=== PATIENT | male | born 1995 | race Caucasian/White ===

== ENCOUNTER 2016-10-20 02:01 | Emergency (ER) | payer OTHER ==
[~2016-10-20] VITALS: Ht 177.8 cm; Wt 136.1 kg
[2016-10-20 02:02] VITALS: BP 158/120
--- NOTE | 2016-10-20 02:31 | NUR ---
PATIENT TO OF1
[2016-10-20] MEDS ORDERED: LIDOCAINE 1% 500 MG/50 ML VIAL INJ ONE (02:35)
--- NOTE | 2016-10-20 02:45 | NUR ---
PATIENT MOVED TO ER BED 7
--- NOTE | 2016-10-20 02:50 | NUR ---
received from overflow
--- NOTE | 2016-10-20 03:00 | NUR ---
PATIENT PRESENTS TO ED WITH RT TOE NAIL INFECTED . PT DENIES N/V/D; SKIN IS PINK/WARM/DRY; AAOX4 WITH EVEN AND STEADY GAIT; LUNGS CLEAR BL; HR EVEN AND REGULAR; PT DENIES ANY FEVER, CP, SOB, OR COUGH AT THIS TIME; PATIENT STATES PAIN OF 10/10 AT THIS TIME; VSS; PATIENT POSITIONED FOR COMFORT; HOB ELEVATED; BEDRAILS UP X2; BED DOWN. ER MD MADE AWARE OF PT STATUS.
--- NOTE | 2016-10-20 03:30 | NUR ---
DR STONER USED STERILE PROCEDURE AND REMOVED PARTIAL RT TOE NAIL. PT TOLERATED WELL.
--- NOTE | 2016-10-20 04:10 | NUR ---
Patient discharged with v/s stable. Written and verbal after care instructions given and explained. Patient alert, oriented and verbalized understanding of instructions. Ambulatory with steady gait. All questions addressed prior to discharge. ID band removed. Patient advised to follow up with PMD. Rx of Bacitracin and Naprosyn given. Patient educated on indication of medication including possible reaction and side effects. Opportunity to ask questions provided and answered.
[2016-10-20 04:11] VITALS: BP 141/89
== END 2016-10-20 04:11 | disposition home or self-care (01) ==
LOC: MED 02:01
DX: L60.0 Ingrowing nail (principal); J45.909 Unspecified asthma, uncomplicated
CPT/HCPCS: 11765; 99285

== ENCOUNTER 2016-11-18 00:56 | Emergency (ER) | payer OTHER ==
[~2016-11-18] VITALS: Ht 175.3 cm; Wt 131.5 kg
[2016-11-18 01:05] VITALS: BP 161/120
--- NOTE | 2016-11-18 01:12 | NUR ---
TO ER BED 4
--- NOTE | 2016-11-18 01:21 | NUR ---
21Y/M PT. PRESENTS TO ED WITH C/O LT.INGROWN TOE NAIL X 1 MON. AAO X4, AMBULATORY WITH STEADY GAIT. SKIN WARM AND DRY. LT. INGROWN TOE NAIL, SWELLING. VS, BP ELEVATED. ER MADE AWARE OF PT. STATUS.
[2016-11-18] MEDS ORDERED: LIDOCAINE 1% 500 MG/50 ML VIAL INJ ONE (01:30)
--- NOTE | 2016-11-18 02:00 | NUR ---
DR. ARGUETA PERFORM I AND D AT BEDSIDE
--- NOTE | 2016-11-18 02:20 | NUR ---
Patient discharged with v/s stable. Written and verbal after care instructions given and explained. Patient alert, oriented and verbalized understanding of instructions. Ambulatory with steady gait. All questions addressed prior to discharge. ID band removed. Patient advised to follow up with PMD. Rx of MOTRIN 800 MG, NORCO 5/325 MG, BACTRIM DS , KEFLEX 500 MG given. Patient educated on indication of medication including possible reaction and side effects. Opportunity to ask questions provided and answered.
[2016-11-18 02:32] VITALS: BP 150/98
== END 2016-11-18 02:20 | disposition home or self-care (01) ==
LOC: MED 00:56
DX: L60.0 Ingrowing nail (principal); J45.909 Unspecified asthma, uncomplicated
CPT/HCPCS: 11730; 99284; J2001

== ENCOUNTER 2018-05-16 13:53 | Emergency (ER) | payer OTHER ==
[~2018-05-16] VITALS: Ht 177.8 cm; Wt 127.0 kg
[2018-05-16 14:10] VITALS: BP 170/91
--- NOTE | 2018-05-16 14:10 | NUR ---
PATIENT AMBULATED TO ER BED 8.
--- NOTE | 2018-05-16 14:13 | NUR ---
URINE COLLECTED AT THIS TIME.
--- NOTE | 2018-05-16 14:15 | NUR ---
22 Y/O M PT W/ C/O UPPER ABD PAIN X2 DAYS, REPORTS DIARRHEA. SKIN IS INTACT, PINK/WARM/DRY; AAOX4, PERRL, WITH EVEN AND STEADY GAIT; LUNGS CLEAR BL, BREATHING UNLABORED; HR EVEN AND REGULAR, BL PERIPHERAL PULSES PRESENT; BS ACTIVE X4, NO TENDERNESS TO PALPATION, NO HEPATOSPLENOMEGALLY PALPATED, RESONANT TO PERCUSSION; PT DENIES ANY FEVER, CP, SOB, OR COUGH AT THIS TIME; PT STATES 8/10 PAIN AT THIS TIME; VSS; PATIENT POSITIONED FOR COMFORT; HOB ELEVATED; BEDRAILS UP X2; BED DOWN. PMH--ASTHMA NKA
[2018-05-16] MEDS ORDERED: NACL 0.9% 1,000 ML IV SCH (14:37)
[2018-05-16] MEDS ORDERED: DICYCLOMINE HCL LIQUID 10 MG/5 ML UDC PO ONE (14:40)
[2018-05-16] MEDS ORDERED: KETOROLAC 15 MG/ML VIAL IVP ONE (14:40)
--- NOTE | 2018-05-16 15:00 | NUR ---
PT RESTING IN BED. HANDS UNCROSSED, FEET UNCROSSED. NO DISTRESS NOTED.
[2018-05-16 15:03] LABS: BASOPHILS # (AUTO) 0.1 K/uL (0.00-0.22); BASOPHILS % (AUTO) 1.8 % (0.0-2.0); EOSINOPHILS # (AUTO) 0.3 K/uL (0-0.4); EOSINOPHILS % (AUTO) 3.3 % (0.0-4.0); HEMATOCRIT 48.1 % (36-52); HEMOGLOBIN 16.4 g/dL (12.0-18.0); LYMPHOCYTES # (AUTO) 2.2 K/uL (2.0-11.5); LYMPHOCYTES % (AUTO) 26.7 % (20.5-51.1); MEAN CORPUSCULAR HEMOGLOBIN 31 pg (27-31); MEAN CORPUSCULAR HGB CONC 34 g/dL (33-37); MEAN CORPUSCULAR VOLUME 89.5 fL (80-94); MONOCYTES # (AUTO) 0.6 K/uL (0.8-1.0); NEUTROPHILS % (AUTO) 61.2 % (42.2-75.2); PLATELET COUNT (AUTO) 273 K/uL (140-450); RED BLOOD CELL COUNT(AUTO) 5.37 MIL/uL (4.20-6.10); RED CELL DISTRIBUTION WIDTH 12.8 % (11.6-13.7); WHITE BLOOD COUNT (AUTO) 8.1 K/uL (4.8-10.8)
[2018-05-16 15:18] LABS: ALBUMIN 3.7 g/dL (3.4-5.0); ANION GAP 10.8 (8-16); CARBON DIOXIDE 27.1 mmol/L (21-32); CREATININE 0.8 mg/dL (0.7-1.3); POTASSIUM 3.9 mmol/L (3.5-5.1); TOTAL BILIRUBIN 0.7 mg/dL (0.0-1.0)
[2018-05-16 16:24] LABS: APPEARANCE,URINE CLEAR (CLEAR); BILIRUBIN,URINE NEGATIVE (NEGATIVE); BLOOD, URINE TRACE-I (NEGATIVE); COLOR,URINE YELLOW (YELLOW); LEUKOCYTE ESTERASE ,URINE NEGATIVE (NEGATIVE); NITRITE, URINE NEGATIVE (NEGATIVE); UGLUCOSE 2+ (NEGATIVE)
[2018-05-16 16:29] LABS: RBC,URINE 0-5 (RARE) /HPF (0-5); WBC,URINE 0-5 (RARE) /HPF (0-5)
[2018-05-16 16:45] VITALS: BP 145/82
--- NOTE | 2018-05-16 16:46 | NUR ---
Patient discharged with v/s stable. Written and verbal after care instructions given and explained. Patient alert, oriented and verbalized understanding of instructions. Ambulatory with steady gait. All questions addressed prior to discharge. ID band removed. Patient advised to follow up with PMD. Rx of PEPTO-BISMAL given. Patient educated on indication of medication including possible reaction and side effects. Opportunity to ask questions provided and answered.
== END 2018-05-16 16:46 | disposition home or self-care (01) ==
LOC: MED 13:53
DX: R10.10 Upper abdominal pain, unspecified (principal); R19.7 Diarrhea, unspecified; R14.0 Abdominal distension (gaseous); J45.909 Unspecified asthma, uncomplicated; R73.9 Hyperglycemia, unspecified
CPT/HCPCS: 36415; 80053; 81001; 83690; 85025; 96374; 99284; J1885; J7030

== ENCOUNTER 2018-08-01 17:41 | Emergency (ER) | payer OTHER ==
[~2018-08-01] VITALS: Ht 180.3 cm; Wt 129.3 kg
[2018-08-01 18:04] VITALS: BP 175/100
--- NOTE | 2018-08-01 18:33 | NUR ---
22 Y MALE BIB SELF C/O INGROWN TOENAIL ON LT 1ST BIG TOE X2 WEEKS. PT REPORTS THROBBING PAIN AT 7/10. EDEMA AND ERYTHEMA PRESENT ON TOE, NO DRAINAGE AT THIS TIME. AA0X4. VSS AT THIS TIME. BED IS DOWN, LOCKED, BED RAIL X 1, ERMD NOTIFIED. MEDHX:ASTHMA A CHILD RX:DENIES
[2018-08-01] MEDS ORDERED: LIDOCAINE 1% 500 MG/50 ML VIAL INJ SCH (19:05)
[2018-08-01] MEDS ORDERED: IBUPROFEN 600 MG TAB PO ONE (19:05)
--- NOTE | 2018-08-01 19:05 | NUR ---
DR NINO AT BEDSIDE
--- NOTE | 2018-08-01 19:07 | NUR ---
REPORT GIVEN TO CELINA GARCIA
[2018-08-01] MEDS ORDERED: LIDOCAINE MPF 1% 5mL VIAL ONE (19:20)
[2018-08-01] MEDS ORDERED: LIDOCAINE 2% 1000 MG/50 ML VIAL INJ ONE (19:35)
--- NOTE | 2018-08-01 19:40 | NUR ---
BED DOWN, SAFETY PRECAUTIONS IN PLACE. PT ON CELL PHONE, ACTING APPROPRIATLY. WILL CONTINUE TO MONITOR.
[2018-08-01] MEDS ORDERED: BACITRACIN OINT 500 UNITS/GM PKT TP ONE (19:50)
[2018-08-01 20:34] VITALS: BP 139/70
--- NOTE | 2018-08-01 20:34 | NUR ---
Patient discharged with v/s stable. Written and verbal after care instructions given and explained. Patient alert, oriented and verbalized understanding of instructions. Ambulatory with steady gait. All questions addressed prior to discharge. ID band removed. Patient advised to follow up with PMD. Rx of KEFLEX, IBUPROFEN given. Patient educated on indication of medication including possible reaction and side effects. Opportunity to ask questions provided and answered.
== END 2018-08-01 20:34 | disposition home or self-care (01) ==
LOC: MED 17:41
DX: L60.0 Ingrowing nail (principal); J45.909 Unspecified asthma, uncomplicated
CPT/HCPCS: 11750; 99284; J2001

== ENCOUNTER 2019-02-13 04:28 | Emergency (ER) | payer OTHER ==
[~2019-02-13] VITALS: Ht 177.8 cm; Wt 104.3 kg
[2019-02-13 04:30] VITALS: BP 170/90
[2019-02-13 05:03] VITALS: BP 170/90
== END 2019-02-13 05:03 | disposition home or self-care (01) ==
LOC: MED 04:28
DX: L02.413 Cutaneous abscess of right upper limb (principal); J45.909 Unspecified asthma, uncomplicated
CPT/HCPCS: 99283

== ENCOUNTER 2019-02-27 13:20 | Emergency (ER) | payer OTHER ==
--- NOTE | 2019-02-27 15:30 | NUR ---
REFER TO DOWNTIME CHARTING FOR PREVIOUS ORDERS AND DOCUMENTATION.
[2019-02-27 15:45] VITALS: BP 152/91
--- NOTE | 2019-02-27 15:45 | NUR ---
Patient discharged with v/s stable. Written and verbal after care instructions given and explained. Patient alert, oriented and verbalized understanding of instructions. Ambulatory with steady gait. All questions addressed prior to discharge. ID band removed. Patient advised to follow up with PMD. Rx of PROMETHAZINE SYRUP given. Patient educated on indication of medication including possible reaction and side effects. Opportunity to ask questions provided and answered.
== END 2019-02-27 15:45 | disposition home or self-care (01) ==
LOC: MED 13:20
DX: J06.9 Acute upper respiratory infection, unspecified (principal); R03.0 Elevated blood-pressure reading, without diagnosis of hypertension; J45.909 Unspecified asthma, uncomplicated
CPT/HCPCS: 99283

== ENCOUNTER 2019-03-27 22:30 | Emergency (ER) | payer OTHER ==
[~2019-03-27] VITALS: Ht 177.8 cm; Wt 127.0 kg
[2019-03-27 22:35] VITALS: BP 152/90
--- NOTE | 2019-03-27 22:38 | NUR ---
TO LOBBY A/W BED AMBULATORY
--- NOTE | 2019-03-28 00:22 | NUR ---
PATIENT ASSESSMENT COMPLETED AT THIS TIME FOR INGROWN TOE NAIL ON RIGHT FOOT. PATIENT SITTING UP IN BED. BED LOW LOCKED WITH SIDE RAIL UP ON ONE SIDE.
--- NOTE | 2019-03-28 00:52 | NUR ---
DR. FELIPE SARAH AT BEDSIDE.
[2019-03-28] MEDS ORDERED: LIDOCAINE 2% 1000 MG/50 ML VIAL INJ ONE (00:55)
--- NOTE | 2019-03-28 01:34 | NUR ---
DR. JULIO PERFORMING I&D AT BEDSIDE.
[2019-03-28] MEDS ORDERED: BACITRACIN OINT 500 UNITS/GM PKT TP ONE ×2 (01:40)
--- NOTE | 2019-03-28 01:50 | NUR ---
PT WOUND CLEANDED AND IRRIGATED WITH NORMAL SALINE AND 4X4 GUAZE PADS, BACITRACIN APPLIED TO PT WOUND AND DRESSED WITH NON ADHERENT PAD AND WRAPPED WITH 2INCH GUAZE ROLL, PT FOOT PLACED IN ORTHO SHOE CMS CHECKED AND WNL
[2019-03-28 02:31] VITALS: BP 142/87
--- NOTE | 2019-03-28 02:32 | NUR ---
Patient discharged with v/s stable. Written and verbal after care instructions given and explained. Patient alert, oriented and verbalized understanding of instructions. Ambulatory with steady gait. All questions addressed prior to discharge. ID band removed. Patient advised to follow up with PMD. Rx of bactrim, motrin given. Patient educated on indication of medication including possible reaction and side effects. Opportunity to ask questions provided and answered.
== END 2019-03-28 02:32 | disposition home or self-care (01) ==
LOC: MED 22:30
DX: L60.0 Ingrowing nail (principal); J45.909 Unspecified asthma, uncomplicated
CPT/HCPCS: 11730; 99283; J2001

== ENCOUNTER 2019-04-16 18:46 | Emergency (ER) | payer OTHER ==
[~2019-04-16] VITALS: Ht 177.8 cm; Wt 127.0 kg
[2019-04-16 19:05] VITALS: BP 163/106
--- NOTE | 2019-04-16 19:33 | NUR ---
X-Ray at bedside.
--- NOTE | 2019-04-16 20:00 | NUR ---
RECEIVED REPORT FROM GURINDER GARCIA
--- NOTE | 2019-04-16 20:13 | NUR ---
C/O COUGH X 4 WEEKS, INTERMITTENT WITH [employer] STATES BODY ACHY PAIN AFTER COUGHING. DENIES NASAL CONGESTION, RHINORRHEA. HX ASTHMA
[2019-04-16] MEDS ORDERED: AZITHROMYCIN 250 MG TAB PO ONE (21:05)
--- NOTE | 2019-04-16 21:30 | NUR ---
Patient discharged with v/s stable. Written and verbal after care instructions given and explained. Patient alert, oriented and verbalized understanding of instructions. Ambulatory with steady gait. All questions addressed prior to discharge. ID band removed. Patient advised to follow up with PMD. Rx of AZITHROMYCIN, MEDROL, VENTOLIN, PROMETHAZINE DM given. Patient educated on indication of medication including possible reaction and side effects. Opportunity to ask questions provided and answered.
[2019-04-16 21:32] VITALS: BP 145/84
== END 2019-04-16 21:30 | disposition home or self-care (01) ==
LOC: MED 18:46
DX: J18.9 Pneumonia, unspecified organism (principal); R03.0 Elevated blood-pressure reading, without diagnosis of hypertension; J45.909 Unspecified asthma, uncomplicated
CPT/HCPCS: 71045; 99283; Q0092

== ENCOUNTER 2021-07-17 03:40 | Emergency (ER) | payer OTHER ==
[~2021-07-17] VITALS: Ht 177.8 cm; Wt 122.0 kg
[2021-07-17 03:53] VITALS: BP 191/94
--- NOTE | 2021-07-17 03:59 | NUR ---
PT TO BED 8
--- NOTE | 2021-07-17 04:03 | NUR ---
Dr. Morris at bedside to exam patient.
[2021-07-17] MEDS ORDERED: KETOROLAC 60 MG/2 ML VIAL IM ONE (04:10)
[2021-07-17] MEDS ORDERED: NAPR-54 PO (05:35)
--- NOTE | 2021-07-17 05:39 | NUR ---
DR SOSA AT BEDSIDE D/C PT AND PAPERWORK
--- NOTE | 2021-07-17 05:42 | NUR ---
Patient discharged with v/s stable. Written and verbal after care instructions given and explained. Patient verbalized understanding. Ambulatory with steady gait. All questions addressed prior to discharge. Advised to follow up with PMD.
== END 2021-07-17 05:42 | disposition home or self-care (01) ==
LOC: MED 03:40
DX: S33.5XXA Sprain of ligaments of lumbar spine, initial encounter (principal); J45.909 Unspecified asthma, uncomplicated; Z79.899 Other long term (current) drug therapy; X58.XXXA Exposure to other specified factors, initial encounter; Y93.89 Activity, other specified; Y92.89 Other specified places as the place of occurrence of the external cause; Y99.8 Other external cause status
CPT/HCPCS: 96372; 99283; J1885